=== PATIENT | male | born 1965 | race Caucasian/White ===

== ENCOUNTER 2024-12-31 06:24 | Day surgery (SDC) | payer BC, SELFPAY ==
[2024-12-22 12:19] VITALS: BMI 31.6
[2024-12-31] VITALS (12 sets, daily range): BP systolic 120–152; BP diastolic 67–89; BMI 31.6
[2024-12-31] MEDS: NORMOSOL-R/PLASMALYTE-A 1000 IV (11:29)
--- NOTE | 2024-12-31 13:31 | W.IMMPOSTOP ---
Surgical Immed Post Op Note
-
Primary Surgeon: Cathy
Pre-op Diagnosis: BPH w/ CLARK s/p PUL (2021), incomplete bladder emptying
Post-op Diagnosis: Same
Procedure Performed:
1. Urethral dilation
2. Cystoscopy w/ removal of prostatic urethral implants x4
3. TURP
Anesthesia Type: LMA
Specimen / Cultures: prostate chips/None
Estimated Blood Loss: 3 cc
Drains: 22Fr 3-way catheter (30 cc in balloon)
Complications: None
Operative Findings:
1. Massive intravesical median lobe w/ CLARK - resected down to base w/ patent vesicoprostatic junction on final cysto.
2. No involvement of bilateral UOs, veru, external urethral sphincter w/n margins of resection.
3. Wide resection of lateral lobes to prostatic capsule and median lobe to floor - excellent hemostasis on final cysto.
Spouse (Linda) called post-op - detailed VM left.
[2024-12-31] MEDS: DESYREL 50 MG PO (21:54)
[2025-01-01 03:00] VITALS: BP 118/64
[2025-01-01 07:00] VITALS: BP 124/68
[2025-01-01 07:13] LABS: % Basophils 0.1 % (0-2); % Immature Granulocytes 0.6 % (0-0.5); % Lymphocytes 6.5 % (20.5-51.1); % Neutrophils 86.8 % (42.2-75.2); Absolute Immature Granulocytes 0.1 10^3/uL (0-0.05); Absolute Lymphocytes 0.7 10^3/uL (1.2-3.4); Absolute Monocytes 0.7 10^3/uL (0.1-0.6); Absolute Neutrophils 9.4 10^3/uL (1.4-6.5); Hemoglobin 13.5 g/dL (13.0-18.0); Mean Corp Hgb Conc. 35.5 g/dL (33.0-37.0); Mean Corpuscular Hgb 31.4 pg (27.0-31.0); Mean Corpuscular Volume 88.4 fL (80.0-94.0); Mean Platelet Volume 10.6 fL (7.4-10.4); Nucleated Red Blood Cells % 0 % (-); Platelet Count 191 10^3/uL (130-400); Red Cell Dist. Width 12.6 % (11.5-14.5); White Blood Cell Count 10.8 10^3/uL (4.8-10.8)
[2025-01-01 07:38] LABS: Blood Urea Nitrogen 22 mg/dl (9-20); Calcium 9.1 mg/dl (8.4-10.2); Carbon Dioxide 22 mmol/L (22-30); Chloride 110 mmol/L (98-107); Estimated Creatinine Clearance 118 ml/min; Glucose 186 mg/dl (70-99); Potassium 4.4 mmol/L (3.5-5.1); Sodium 141 mmol/L (135-145); eGFR > 60.00
[2025-01-01] MEDS: LIPITOR 20 MG PO (07:57)
[2025-01-01] MEDS: DIOVAN 80 MG PO (07:57)
[2025-01-01] MEDS: CLARITIN 10 MG PO (07:57)
--- NOTE | 2025-01-01 09:57 | W.PN.URO.CBU ---
Today's Communication / Plan
-
Trial of void
Discharge
Assessment / Plan
-
59M with BPH s/p TURP
- Clarke removed this AM
- Some slow stream and hematuria this AM
- Trend voids today - encouraged hydration
- Post void bladder scan
Discharge today if voiding well
Diagnosis
-
Date of Service: January 01, 2025
-
Patient Diagnosis:
BPH
Post Op s/p TURP
Subjective
-
Voiding with slow trickling and some mild hematuria s/p clarke removal
No pain
No clots
Objective
-
Vital Signs
Temp Pulse Resp BP Pulse Ox
98 F 82 12 124/68 95
01/01/25 07:00 01/01/25 07:57 01/01/25 07:00 01/01/25 07:57 01/01/25 07:00
Intake and Output
12/31/24 01/01/25 01/02/25
06:59 06:59 06:59
Intake Total 1060 / 1060
Output Total 1250 / 1250
Balance -190 / -190
Intake:
Oral fluids 960 / 960
IV fluids (Total) 100 / 100
Normosol 100 / 100
Output:
True Urine Output from CBI 1250 / 1250
Other:
Number of approximated SMALL 2
amounts of urine
Laboratory Results
01/01/25 05:54
01/01/25 05:54
Physical Exam
-
General - well developed, well nourished, no acute distress
Chest - clear bilaterally
Abdomen - soft, non-tender
[2025-01-01 11:00] VITALS: BP 127/75
[2025-01-01] MEDS: FLOMAX 0.4 MG PO (12:05)
[2025-01-01 15:00] VITALS: BP 152/77
== END 2025-01-01 18:15 | disposition home or self-care (01) ==
LOC: SDS 06:24
PROVIDERS: ATTENDING PHYSICIAN Surgery; FAMILY PHYSICIAN Obstetrics & Gynecology Gynecology
DX: N40.1 Benign prostatic hyperplasia with lower urinary tract symptoms (principal); N32.0 Bladder-neck obstruction; R33.8 Other retention of urine; Z98.890 Other specified postprocedural states
CPT/HCPCS: 52601; 88305; 36415; 80048; 85025; 93005

== ENCOUNTER 2025-05-12 10:45 | Outpatient (RCR) | payer BC, SELFPAY | END 2025-05-12 23:59 | disposition home or self-care (01) | LOC: RPT 10:45 | PROVIDERS: ATTENDING PHYSICIAN Surgery; FAMILY PHYSICIAN Physician Assistant Medical | DX: M62.89 Other specified disorders of muscle (principal); R39.15 Urgency of urination; Z73.6 Limitation of activities due to disability | CPT/HCPCS: 97163; 97530 ==

== ENCOUNTER 2025-07-22 09:00 | Outpatient (RCR) | payer BC, SELFPAY | END 2025-07-22 23:59 | disposition home or self-care (01) | LOC: RPT 09:00 | PROVIDERS: ATTENDING PHYSICIAN Surgery; FAMILY PHYSICIAN Physician Assistant Medical | DX: M62.89 Other specified disorders of muscle (principal); R39.15 Urgency of urination; Z73.6 Limitation of activities due to disability | CPT/HCPCS: 97110; 97112; 97530 ==